=== PATIENT | male | born 1965 | race Caucasian/White ===

== ENCOUNTER 2016-06-11 11:10 | Emergency (ER) | payer OTHER ==
--- NOTE | 2016-06-11 11:53 | ED NURSING NOTES ---
Clinical Report - Nurses [facility] [address] [place] [address] 06/11/2016 11:10 Patient: FROYLAN CASTRO TRIAGE Triage time 1123 AM. Acuity: LEVEL 5. Chief Complaint: DEPRESSION and ANXIETY. --11:28 Crystal Stokes R.N. 11:22 06/11/16. BP: 155/80. HR: 73. RR: 15. O2 saturation: 100% on room air. Temp: 98.2 F (oral). Pain level now: 0/10. --11:28 Crystal Stokes R.N. Weight: 58.9 kg stated. Height/Length: 65 inches Per Patient. BMI: 21.6. --11:21 Crystal Stokes R.N. Medications None. --11:23 Crystal Stokes R.N. Allergies No Known Drug Allergy. --11:23 Crystal Stokes R.N. Medication/allergy information source: the patient. --11:28 Crystal Stokes R.N. History Arrived by private vehicle. Historian: patient. Primary physician (Dr. Root). ( Pt states feeling anxious "related to work, stress out, unable to sleep" looking to get a "brake" to set up for a leave of absence" Pt admits to insomnia, depression and anxiety. Denies any suicidal thoughts, hallucinations, only agitated "when at work"). Onset was gradual. (3 weeks). He has had anxiety and sleeping difficulties and describes feelings of depression. Has been feeling agitated. Has not been confused. Denies having hallucinations. Treatment PAYMENT MANAGER: None. PAST MEDICAL HX: Immunizations: up-to-date. SOCIAL HX: Heavy tobacco smoker (cigarette)- less than 1 pack per day. Regular alcohol use; consumes six beers a day. No drug use. No infectious disease exposure. ABUSE ASSESSMENT: No report of abuse. SELF HARM ASSESSMENT: A self harm assessment was performed. The patient answered "no" to the question "Do you have thoughts of harming or killing yourself?" and "Have you recently had thoughts about harming or killing others?". FALL RISK ASSESSMENT: Fall risk assessment completed. No fall risk identified. NUTRITIONAL RISK ASSESSMENT: The nutritional risk assessment revealed no deficiencies. FUNCTIONAL ASSESSMENT: Functional assessment: no impairments noted. LEARNING NEEDS ASSESSMENT: The learning needs assessment revealed no barriers. SKIN INTEGRITY ASSESSMENT: Skin integrity risk assessment completed. No skin integrity risk identified. -- Crystal Stokes R.N. PROBLEMS: Fractured Metatarsal. Tetanus Status. Immunizations. -- Crystal Stokes R.N. ADDITIONAL SURGERIES: Tendon repair right foot. -- Crystal Stokes R.N. Interventions ID band on patient. -- Crystal Stokes R.N. PHYSICAL ASSESSMENT Ambulatory to room. GENERAL / NEURO / PSYCH: Alert. Oriented X 4. Appears in no acute distress. Speech within normal limits. Affect appears normal. Patient appears calm and cooperative but does not express homicidal thoughts. Good eye contact. Denies suicidal thoughts. Patient is not verbally threatening. Patient appears neat and clean. RESPIRATORY: Respirations not labored. Breath sounds within normal limits. CVS: Capillary refill less than 2 seconds. SKIN: Skin is warm and dry. Skin color is within normal limits. -- Crystal Stokes R.N. NURSING PROGRESS NOTES The initial plan of care for this patient has been created This plan of care was discussed with the patient. Patient gowned. Warming measures: blanket applied. Reassurance given. No suicide precautions initiated. Two patient identifiers checked. Call light placed in reach. Side rails up x 1. Bed placed in lowest position. Brakes of bed on. -- Crystal Stokes R.N. DISPOSITION / DISCHARGE Departure time: 1200 PM. Condition at departure: stable. The goals identified in the patient's plan of care were met. No learning barriers present. Discharge instructions provided and reviewed with the patient. Work note given (3 days). Patient verbalized understanding. Written instructions provided in Togolese. No warning instructions, medication instructions, treatment instructions, referrals given to the patient or diet instructions. No activity restrictions or stop smoking instructions. The patient was discharged by the physician. He was discharged home and accompanied by spouse. He left the Emergency Department ambulatory and via private vehicle. Patient driving. FALL RISK ASSESSMENT: Fall risk assessment completed. No fall risk identified. --12:04 Crystal Stokes R.N. 12:00 06/11/16. BP: 143/85. HR: 84. RR: 12. O2 saturation: 100% on room air. Temp: 98.2 F (oral). Pain level now: 0/10. --12:04 Crystal Stokes R.N. Locked/Released at 06/11/2016 12:04 by Crystal Stokes R.N.
--- NOTE | 2016-06-11 11:53 | ED CLINICAL REPORT ---
Clinical Report - Physicians/Mid Levels [facility] [address] [place] [address] 06/11/2016 11:10 Patient: FROYLAN CASTRO Time Seen: 1120. Arrived- By private vehicle. Historian- patient. Referred (self). HISTORY OF PRESENT ILLNESS Chief Complaint: ANXIOUS. This started past 3 weeks. The patient has experienced situational problems (reports having job assignment changes). Has not been sleeping. He has had anxiety. The symptoms are described as moderate. No injury is present. no HI/SI or hallucinations. 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 Similar symptoms previously: None. Recent medical care: Not recently seen/assessed. REVIEW OF SYSTEMS No headache, chest pain, palpitations, vomiting or diarrhea. No fever, difficulty breathing or skin rash. All systems otherwise negative, except as recorded above. PAST HISTORY See nurses notes. Medications: None. Allergies: No Known Drug Allergy. SOCIAL HISTORY Never smoker. No alcohol use or drug use. Has social support. Has place to stay. FAMILY HISTORY No history of psychiatric problems or suicide attempts. (anxiety with mother). ADDITIONAL NOTES The nursing notes have been reviewed. PHYSICAL EXAM Vital Signs: 06/11/2016 11:22 BP: 155/80. HR: 73. RR: 15. O2 saturation: 100%. Temp: 98.2 F. Pain level now: 0/10. Blood pressure normal. Oxygen saturation normal. Appearance: Alert. No acute distress. Appearance is normal. Eyes: Pupils equal, round and reactive to light. Neck: Normal inspection. Neck supple. CVS: Normal heart rate and rhythm. Heart sounds normal. Respiratory: Breath sounds normal. Chest nontender. Abdomen: Soft and nontender. Back: No tenderness. Skin: Skin warm and dry. Normal skin color. Normal skin turgor. Psych / Neuro: Oriented X 3. (mood is anxious affect is congruent). Speech normal. Cognition normal. Thought process and content normal. Insight and judgement normal. Cranial nerves normal (as tested). No cerebellar findings. No motor deficit. No sensory deficit. PROGRESS AND PROCEDURES Course of Care: The patient is a pleasant 51-year-old male with no pertinent past medical history presenting for reevaluation of anxiety. Patient has no homicidal or suicidal ideations. Patient is not a danger to self or other people. Had long discussion with patient in regards to symptoms of anxiety andpossible treatments for insomnia as well. Cautioned patient in regards to starting medications for anxiety and stated there dependence and potential competitions withwithdrawal. Encouraged patient to follow up with his primary care doctor and to try nonpharmacological interventions for his anxiety first. Also recommended patient to try other behavioral type of techniques for sleep problems. Do not fill symptoms at this time or do to a metabolic or infectious etiology. Do not feel further workup here in the emergency department is required. Do not fill patient is admitted at this time. Discussed with patient workup, diagnosis, home care, follow-up, and return precautions. All questions have been answered. The patient expressed understanding of these instructions and was agreeable to them. Disposition: Discharged. Condition: good. CLINICAL IMPRESSION Adjustment disorder with anxiety (acute). 06/11/2016 11:22 BP: 155/80. HR: 73. RR: 15. O2 saturation: 100%. Temp: 98.2 F. Pain level now: 0/10. Hypertensive. Oxygen saturation normal. Essential hypertension. INSTRUCTIONS Do not work for three days. Warnings: GENERAL WARNINGS: Return or contact your physician immediately if your condition worsens or changes unexpectedly, if not improving as expected, or if other problems arise. Specifically return if pain, breathing difficulty or fever. Your Current Medications: CONTINUE TAKING THE FOLLOWING MEDICATIONS: None*. Follow-up: Return to the emergency department as needed. Follow up with your doctor in three days. Reason for referral: recheck today's concerns. Summary of care provided to patient via paper. Screening today revealed the patient's blood pressure to be in the hypertensive range. The patient should follow up with a primary care provider for blood pressure management. Understanding of the discharge instructions verbalized by patient. (Electronically signed by Richard Soto Dr. 06/11/2016 17:13)
--- NOTE | 2016-06-11 11:53 | ED CLINICAL REPORT ---
Clinical Report - Physicians/Mid Levels [facility] [address] [place] [address] 06/11/2016 11:10 Patient: FROYLAN CASTRO Time Seen: 1120. Arrived- By private vehicle. Historian- patient. Referred (self). HISTORY OF PRESENT ILLNESS Chief Complaint: ANXIOUS. This started past 3 weeks. The patient has experienced situational problems (reports having job assignment changes). Has not been sleeping. He has had anxiety. The symptoms are described as moderate. No injury is present. no HI/SI or hallucinations. 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 Similar symptoms previously: None. Recent medical care: Not recently seen/assessed. REVIEW OF SYSTEMS No headache, chest pain, palpitations, vomiting or diarrhea. No fever, difficulty breathing or skin rash. All systems otherwise negative, except as recorded above. PAST HISTORY See nurses notes. Medications: None. Allergies: No Known Drug Allergy. SOCIAL HISTORY Never smoker. No alcohol use or drug use. Has social support. Has place to stay. FAMILY HISTORY No history of psychiatric problems or suicide attempts. (anxiety with mother). ADDITIONAL NOTES The nursing notes have been reviewed. PHYSICAL EXAM Vital Signs: 06/11/2016 11:22 BP: 155/80. HR: 73. RR: 15. O2 saturation: 100%. Temp: 98.2 F. Pain level now: 0/10. Blood pressure normal. Oxygen saturation normal. Appearance: Alert. No acute distress. Appearance is normal. Eyes: Pupils equal, round and reactive to light. Neck: Normal inspection. Neck supple. CVS: Normal heart rate and rhythm. Heart sounds normal. Respiratory: Breath sounds normal. Chest nontender. Abdomen: Soft and nontender. Back: No tenderness. Skin: Skin warm and dry. Normal skin color. Normal skin turgor. Psych / Neuro: Oriented X 3. (mood is anxious affect is congruent). Speech normal. Cognition normal. Thought process and content normal. Insight and judgement normal. Cranial nerves normal (as tested). No cerebellar findings. No motor deficit. No sensory deficit. PROGRESS AND PROCEDURES Course of Care: The patient is a pleasant 51-year-old male with no pertinent past medical history presenting for reevaluation of anxiety. Patient has no homicidal or suicidal ideations. Patient is not a danger to self or other people. Had long discussion with patient in regards to symptoms of anxiety andpossible treatments for insomnia as well. Cautioned patient in regards to starting medications for anxiety and stated there dependence and potential competitions withwithdrawal. Encouraged patient to follow up with his primary care doctor and to try nonpharmacological interventions for his anxiety first. Also recommended patient to try other behavioral type of techniques for sleep problems. Do not fill symptoms at this time or do to a metabolic or infectious etiology. Do not feel further workup here in the emergency department is required. Do not fill patient is admitted at this time. Discussed with patient workup, diagnosis, home care, follow-up, and return precautions. All questions have been answered. The patient expressed understanding of these instructions and was agreeable to them. Disposition: Discharged. Condition: good. CLINICAL IMPRESSION Adjustment disorder with anxiety (acute). 06/11/2016 11:22 BP: 155/80. HR: 73. RR: 15. O2 saturation: 100%. Temp: 98.2 F. Pain level now: 0/10. Hypertensive. Oxygen saturation normal. Essential hypertension. INSTRUCTIONS Do not work for three days. Warnings: GENERAL WARNINGS: Return or contact your physician immediately if your condition worsens or changes unexpectedly, if not improving as expected, or if other problems arise. Specifically return if pain, breathing difficulty or fever. Your Current Medications: CONTINUE TAKING THE FOLLOWING MEDICATIONS: None*. Follow-up: Return to the emergency department as needed. Follow up with your doctor in three days. Reason for referral: recheck today's concerns. Summary of care provided to patient via paper. Screening today revealed the patient's blood pressure to be in the hypertensive range. The patient should follow up with a primary care provider for blood pressure management. Understanding of the discharge instructions verbalized by patient. (Electronically signed by Richard Soto Dr. 06/11/2016 17:13)
--- NOTE | 2016-06-11 11:53 | ED NURSING NOTES ---
Clinical Report - Nurses [facility] [address] [place] [address] 06/11/2016 11:10 Patient: FROYLAN CASTRO TRIAGE Triage time 1123 AM. Acuity: LEVEL 5. Chief Complaint: DEPRESSION and ANXIETY. --11:28 Crystal Stokes R.N. 11:22 06/11/16. BP: 155/80. HR: 73. RR: 15. O2 saturation: 100% on room air. Temp: 98.2 F (oral). Pain level now: 0/10. --11:28 Crystal Stokes R.N. Weight: 58.9 kg stated. Height/Length: 65 inches Per Patient. BMI: 21.6. --11:21 Crystal Stokes R.N. Medications None. --11:23 Crystal Stokes R.N. Allergies No Known Drug Allergy. --11:23 Crystal Stokes R.N. Medication/allergy information source: the patient. --11:28 Crystal Stokes R.N. History Arrived by private vehicle. Historian: patient. Primary physician (Dr. Root). ( Pt states feeling anxious "related to work, stress out, unable to sleep" looking to get a "brake" to set up for a leave of absence" Pt admits to insomnia, depression and anxiety. Denies any suicidal thoughts, hallucinations, only agitated "when at work"). Onset was gradual. (3 weeks). He has had anxiety and sleeping difficulties and describes feelings of depression. Has been feeling agitated. Has not been confused. Denies having hallucinations. Treatment MANAGER DIALYSIS: None. PAST MEDICAL HX: Immunizations: up-to-date. SOCIAL HX: Heavy tobacco smoker (cigarette)- less than 1 pack per day. Regular alcohol use; consumes six beers a day. No drug use. No infectious disease exposure. ABUSE ASSESSMENT: No report of abuse. SELF HARM ASSESSMENT: A self harm assessment was performed. The patient answered "no" to the question "Do you have thoughts of harming or killing yourself?" and "Have you recently had thoughts about harming or killing others?". FALL RISK ASSESSMENT: Fall risk assessment completed. No fall risk identified. NUTRITIONAL RISK ASSESSMENT: The nutritional risk assessment revealed no deficiencies. FUNCTIONAL ASSESSMENT: Functional assessment: no impairments noted. LEARNING NEEDS ASSESSMENT: The learning needs assessment revealed no barriers. SKIN INTEGRITY ASSESSMENT: Skin integrity risk assessment completed. No skin integrity risk identified. -- Crystal Stokes R.N. PROBLEMS: Fractured Metatarsal. Tetanus Status. Immunizations. -- Crystal Stokes R.N. ADDITIONAL SURGERIES: Tendon repair right foot. -- Crystal Stokes R.N. Interventions ID band on patient. -- Crystal Stokes R.N. PHYSICAL ASSESSMENT Ambulatory to room. GENERAL / NEURO / PSYCH: Alert. Oriented X 4. Appears in no acute distress. Speech within normal limits. Affect appears normal. Patient appears calm and cooperative but does not express homicidal thoughts. Good eye contact. Denies suicidal thoughts. Patient is not verbally threatening. Patient appears neat and clean. RESPIRATORY: Respirations not labored. Breath sounds within normal limits. CVS: Capillary refill less than 2 seconds. SKIN: Skin is warm and dry. Skin color is within normal limits. -- Crystal Stokes R.N. NURSING PROGRESS NOTES The initial plan of care for this patient has been created This plan of care was discussed with the patient. Patient gowned. Warming measures: blanket applied. Reassurance given. No suicide precautions initiated. Two patient identifiers checked. Call light placed in reach. Side rails up x 1. Bed placed in lowest position. Brakes of bed on. -- Crystal Stokes R.N. DISPOSITION / DISCHARGE Departure time: 1200 PM. Condition at departure: stable. The goals identified in the patient's plan of care were met. No learning barriers present. Discharge instructions provided and reviewed with the patient. Work note given (3 days). Patient verbalized understanding. Written instructions provided in Uruguayan. No warning instructions, medication instructions, treatment instructions, referrals given to the patient or diet instructions. No activity restrictions or stop smoking instructions. The patient was discharged by the physician. He was discharged home and accompanied by spouse. He left the Emergency Department ambulatory and via private vehicle. Patient driving. FALL RISK ASSESSMENT: Fall risk assessment completed. No fall risk identified. --12:04 Crystal Stokes R.N. 12:00 06/11/16. BP: 143/85. HR: 84. RR: 12. O2 saturation: 100% on room air. Temp: 98.2 F (oral). Pain level now: 0/10. --12:04 Crystal Stokes R.N. Locked/Released at 06/11/2016 12:04 by Crystal Stokes R.N.
--- NOTE | 2016-06-11 17:13 | ED MED RECONCILIATION SUMMARY ---
Patient: FROYLAN CASTRO Medication Reconciliation Report [facility] VisitID: [id number] [address] [place] [address] 51y, M Registration Date/Time: 06/11/2016 Weight: 58.9 kg Height/Length: 65 in. BMI: 21.6 ALLERGIES: No Known Drug Allergy The patient's Home Medications are listed below: NONE. The source(s) of the original Home Medication information: patient The following Medications were given to the patient in the Emergency Department: None. The following Medications were prescribed to the patient: None.
--- NOTE | 2016-06-11 17:13 | ED DISCHARGE INSTRUCTIONS ---
Patient: FROYLAN CASTRO General Instructions [facility] VisitID: [id number] [address] [place] [address] 51y, M Registration Date/Time: 06/11/2016 Adjustment disorder with anxiety (acute). 06/11/2016 11:22 BP: 155/80. HR: 73. RR: 15. O2 saturation: 100%. Temp: 98.2 F. Pain level now: 0/10. Hypertensive. Oxygen saturation normal. Essential hypertension. INSTRUCTIONS Do not work for three days. Warnings: GENERAL WARNINGS: Return or contact your physician immediately if your condition worsens or changes unexpectedly, if not improving as expected, or if other problems arise. Specifically return if pain, breathing difficulty or fever. Your Current Medications: CONTINUE TAKING THE FOLLOWING MEDICATIONS: None*. Follow-up: Return to the emergency department as needed. Follow up with your doctor in three days. Reason for referral: recheck today's concerns. Summary of care provided to patient via paper. Screening today revealed the patient's blood pressure to be in the hypertensive range. The patient should follow up with a primary care provider for blood pressure management. Understanding of the discharge instructions verbalized by patient. ADDITIONAL INFORMATION Adjustment Disorder An adjustment disorder is a condition that results from having a hard time coping with the normal stresses of life. You may feel you have too much to do and cant get it all done. These feelings may be triggered by divorce, job loss, someone you know dying, or by a positive event like getting a new job or getting . These feelings may interfere with your relationships at home and at work. With this condition, it is common to feel sad, guilty, hopeless and restless. These feelings may continue for weeks or months. It can be helpful to identify what is causing the additional stress and takes steps to get extra support. If new stressful events do not occur, it is likely that you will start feeling better within six months. Home Care: If you have been given a prescription for medicine, take it as directed. It helps to talk about your feelings and thoughts with family or friends that understand and support you. Follow Up with your doctor or therapist as advised by our staff. Let them know if this condition lasts more than six months without sign of improvement. For more information, contact the [employer] [place] at 828-692-1186 or visit www.denise.org. Get Prompt Medical Attention if any of the following occur: Worsening depression or anxiety Feeling out of control Thoughts of harming yourself or another Being unable to care for yourself High Blood Pressure -- To Be Confirmed [No Tx] Your blood pressure was higher today than normal. Sometimes anxiety or pain can cause a temporary rise in blood pressure that later returns to normal. If your blood pressure is high on one measurement, this does not mean that you have hypertension (a chronic illness). However, you must have your blood pressure measured again within the next few days to find out if its still high. A normal blood pressure is 120/80 or less. The first (top) number is the "systolic" pressure. The second (bottom) number is the "diastolic" pressure. Hypertension exists when either the top number is 140 or higher, OR the bottom number is 90 or higher on repeated measurements. Blood pressure in the range of 120-140 (systolic) or 80-89 (diastolic) is considered "pre-hypertension". This means your are at risk for getting hypertension. You should have regular blood pressure checks to be sure your blood pressure is not rising. Home Care: Measure your blood pressure on 3 different days and write down the results. This can be done at your doctor's office or this facility. Some pharmacies and grocery stores offer automated blood pressure machines for your use. Follow Up: If your blood pressure is "high" (over 120/80) on 2 out of 3 days, you will need to follow up with your doctor for further evaluation and treatment. DO NOT PUT THIS OFF! Untreated high blood pressure increases the risk for heart attack, also known as acute myocardial infarction, or AMI, and stroke. It is a treatable condition. Get Prompt Medical Attention if any of the following occur: Chest pain or shortness of breath Severe headache Throbbing or rushing sound in the ears Nosebleed Sudden severe abdominal pain Extreme drowsiness, confusion or fainting Dizziness or vertigo (dizziness with spinning sensation) Weakness of an arm or leg or one side of the face Difficulty with speech or vision You have been given the following additional information: Adjustment Disorder Hypertension, To Be Confirmed Do not work for three days. (Electronically signed by Richard Soto Dr. 06/11/2016 17:13)
--- NOTE | 2016-06-11 17:13 | ED MAR SUMMARY ---
..... Medication Administration Record [facility] [address] [place], [place] [id number] Patient: FROYLAN CASTRO Visit ID: [id number] 51y, M Weight: 58.9 kg Height/Length: 65 in BMI: 21.6 ALLERGIES: No Known Drug Allergy
--- NOTE | 2016-06-11 17:13 | ED MAR SUMMARY ---
..... Medication Administration Record [facility] [address] [place], [place] [id number] Patient: FROYLAN CASTRO Visit ID: [id number] 51y, M Weight: 58.9 kg Height/Length: 65 in BMI: 21.6 ALLERGIES: No Known Drug Allergy
--- NOTE | 2016-06-11 17:13 | ED MED RECONCILIATION SUMMARY ---
Patient: FROYLAN CASTRO Medication Reconciliation Report [facility] VisitID: [id number] [address] 51y, M Registration Date/Time: 06/11/2016 Weight: 58.9 kg Height/Length: 65 in. BMI: 21.6 ALLERGIES: No Known Drug Allergy The patient's Home Medications are listed below: NONE. The source(s) of the original Home Medication information: patient The following Medications were given to the patient in the Emergency Department: None. The following Medications were prescribed to the patient: None.
== END 2016-06-11 11:11 | disposition home or self-care (01) ==
LOC: ED SRH 11:10
DX: F43.22 Adjustment disorder with anxiety (principal); I10 Essential (primary) hypertension